=== PATIENT | female | born 1965 | race Caucasian/White ===

== ENCOUNTER 2020-05-19 16:07 | Outpatient (REF) | payer BC, SELFPAY ==
[2020-05-19 17:41] LABS: MANUAL DIFF FLAG NO
[2020-05-19 17:55] LABS: Basophils Absolute Auto 0.1 X10*3/uL (0.0-0.2); Basophils Percent Auto 0.8 % (0-2); Eosinophils Absolute Auto 0.3 X10*3/uL (0.0-0.4); Hematocrit 39.4 % (37-47); Hemoglobin 13.1 g/dl (12.0-16.0); Imm Gran Abs Auto 0.02 X10*3/uL (0.00-0.03); Imm Gran Pct Auto 0.3 % (0.0-0.4); Lymphocytes Absolute Auto 1.9 X10*3/uL (1.2-4.9); Lymphocytes Percent Auto 30.3 % (20-40); Mean Corpuscular HGB Conc 33.2 g/dl (31.0-35.0); Mean Corpuscular Hemoglobin 30.7 pg (27.0-33.0); Mean Corpuscular Volume 92.3 fL (80-98); Mean Platelet Volume 9.7 fL (9.4-12.3); Monocytes Absolute Auto 0.5 X10*3/uL (0.1-1.2); Monocytes Percent Auto 8.3 % (2-11); Neutrophils Absolute Auto 3.5 X10*3/uL (2.0-8.3); Neutrophils Percent Auto 56.3 % (45-73); Platelet Count 284 X10*3/uL (160-400); Red Blood Count 4.27 X10*6/uL (4.20-5.50); White Blood Count 6.2 X10*3/uL (4.8-10.8)
[2020-05-19 18:12] LABS: C Reactive Protein 0.12 mg/dL (< or = 0.50)
[2020-05-19 19:07] LABS: Erythrocyte Sedimentation Rate 12 MM/HR (0-20)
[2020-05-21 19:56] LABS: Immunoglobulin A 123 mg/dL (47-310)
[2020-05-22 13:47] LABS: Transglutaminase Ab IgG 1 U/mL; Transglutaminase IgA 1 U/mL
[2020-05-24 14:57] LABS: Gliadin Deamidated IgA Ab 3 Units; Gliadin Deamidated IgG Ab 1 Units
[2020-05-28 10:58] LABS: Endomysial IgA Antibody Negative (Negative)
== END 2020-05-19 16:08 | disposition home or self-care (01) ==
LOC: HO.LAB 16:07
PROVIDERS: PCP Family Medicine; Visit Provider Internal Medicine
DX: R19.4 Change in bowel habit (principal); K58.9 Irritable bowel syndrome, unspecified
CPT/HCPCS: 36415; 82784; 83516; 85025; 85652; 86140; 86255; 86256

== ENCOUNTER 2020-05-24 08:50 | Day surgery (SDC) | payer BC, SELFPAY ==
--- NOTE | 2020-05-23 10:59 | HO.ANESPROP2 ---
Documented by User: Marley Patel 05/23/20 11:01 HPI - Anesthesia Eval Consult details Narrative: 54yo F for Colonoscopy [facility] Past Medical History Medical History Anxiety COPD (chronic obstructive pulmonary disease) Depression Surgical History Surgical History Hx of tonsillectomy Social History Social History Smoking Status: Former smoker Years Smoked: 40 Smoked in Last 30 Days: No Smoking Quit Date: 4 years ago Patient Given Instructions on How to Stop Smoking: No Second Hand Smoke Exposure: Yes Use of substances other than those prescribed or required for medical reasons: No Advance Directives: No Advance Directives Information Provided: Yes Meds Allergies Allergy/AdvReac Type Severity Reaction Status Date / Time penicillin V Allergy Unknown Hives/swell Verified 07/31/15 00:00 ing Exam Exam Date and Time: May 23, 2020 1059 Assessment and Plan Assessment Anesthesia Assessment: Chart Reviewed Documented by User: Maxine Ellsworth 05/24/20 10:56 [facility] Past Medical History Medical History Anxiety COPD (chronic obstructive pulmonary disease) Depression Surgical History Surgical History Hx of tonsillectomy Social History Social History Smoking Status: Former smoker Years Smoked: 40 Smoked in Last 30 Days: No Smoking Quit Date: 4 years ago Patient Given Instructions on How to Stop Smoking: No Second Hand Smoke Exposure: Yes Use of substances other than those prescribed or required for medical reasons: No Advance Directives: No Advance Directives Information Provided: Yes Meds Allergies Allergy/AdvReac Type Severity Reaction Status Date / Time penicillin V Allergy Unknown Hives/swell Verified 07/31/15 00:00 ing Exam Airway Mallampati Class: II TM Dist: >3cm Neck ROM: Full Loose/Missing/Broken Teeth: No Heart: RRR Lungs: CTA Assessment and Plan Assessment Anesthesia Assessment: Anesthesia Plan Discussed and Chart Reviewed Final Anesthetic Review NPO: Yes ASA Class: II Final Preanesthetic Review: Meds/Allgs Chart Reviewed, Consent Obtained/Reviewed and Anes Risks/Benef Reviewed Patient Risk: Low Procedure Risk: Low Assessment/Block/Sedation in SS: Assess/Block/Sedation-SS Anesthetic Plan Anesthetic Plan: MAC: Disposition: Standard PACU
[2020-05-24 09:34] VITALS: BMI 30.7
[2020-05-24 09:36] VITALS: BP 146/88; PULSE 55; RESP 16; TEMP 37.1; O2SAT 96
[2020-05-24] MEDS: Lactated Ringers 1,000 ML 100 ML IVCONT (09:42)
[2020-05-24 11:35] VITALS: BP 121/52; PULSE 51; RESP 18; TEMP 37.2; O2SAT 100
--- NOTE | 2020-05-24 11:45 | PM.OP ---
Brief Operative Note Date of Service: 05/24/20 Pre-op diagnosis: Diarrhea, Rectal bleeding Post-op diagnosis: other (Colitis, Rectal polyps) Procedure: Colonoscopy to cecum and TI with biopsies Surgeon: Dion Guzman Anesthesia: MAC Estimated blood loss (mL): 5.0 Pathology: other (A. Ascending colon B. Sigmoid 20-30cm C. Rectum D. Rectal polyps) Condition: stable Disposition: PACU
[2020-05-24 11:57] VITALS: BP 199/61; PULSE 52; RESP 16; O2SAT 100
[2020-05-24 12:05] VITALS: BP 119/61; PULSE 52; RESP 16; TEMP 37.2; O2SAT 100
--- NOTE | 2020-05-24 12:51 | OP_ITS ---
SURGEON: Dion Guzman MD INDICATIONS: The patient presents for evaluation of change in bowel habits, diarrhea, and rectal bleeding. Full consent has been obtained from her for this, including risks of bleeding and perforation. PREOPERATIVE DIAGNOSIS: POSTOPERATIVE DIAGNOSIS: PROCEDURE PERFORMED: Colonoscopy to cecum and terminal ileum with biopsies. ESTIMATED BLOOD LOSS: COMPLICATIONS: ANESTHESIA: Monitored anesthesia care. ASSISTANTS: SPECIMENS: PREOPERATIVE DIAGNOSES: Change in bowel habits, rectal bleeding, and diarrhea. POSTOPERATIVE DIAGNOSES: Change in bowel habits, rectal bleeding, and diarrhea, probable ulcerative colitis, colon polyps, sigmoid diverticulosis, and internal hemorrhoids. DESCRIPTION OF PROCEDURE: The patient was placed in the left lateral decubitus position. The digital rectal exam revealed no abnormalities. The [employer] video pediatric colonoscope was entered into the rectum and advanced easily to the cecum. Once in the cecum, I did identify normal-appearing cecal pouch other than some very minimal changes of colitis with some overlying exudate. The great majority of the cecum appeared normal. The terminal ileum was cannulated and appeared normal. The scope was withdrawn back in the colon. Again, the great majority of the cecum appeared normal other than some very minimal areas of overlying exudate. With irrigation, most of this disappeared, but there was some underlying mucosal friability. The scope was then slowly withdrawn assessing all mucosal surfaces carefully. Preparation was excellent. In the ascending colon was a mild colitis in a patchy distribution. Again, there was some overlying exudate that was mostly washed away but revealed some underlying mucosal friability consistent with colitis. Biopsies were obtained in the ascending colon. The distal ascending colon, transverse colon, and descending colon appeared grossly normal. The sigmoid colon, primarily between 20 and 30 cm, did have evidence of a more active colitis although still relatively mild. Biopsies were obtained between 20 and 30 cm. The proximal rectum also had changes of colitis with biopsies obtained, although the more distal rectum appeared normal. The scope was retroflexed visualizing some internal hemorrhoids. The scope was straightened in the forward viewing position where several probable hyperplastic and/or inflammatory polyps, 2 or 3 of which were biopsied. The scope was withdrawn from the patient. She tolerated the procedure well and returned to recovery area in stable condition. IMPRESSION: 1. Mild changes of colitis in the proximal rectum, sigmoid colon, and ascending colon. 2. Diverticulosis. 3. Rectal polyps. 4. Internal hemorrhoids. PLAN: The results of biopsy will be checked. I do feel these changes in the colon would certainly account for her current symptoms. I shall start her on a trial of mesalamine 800 mg t.i.d. to see if that gives her some symptomatic relief. She may ultimately require some topical treatment with a mesalamine suppository and/or a mesalamine enema. I do not think she needs steroids at this point. I did advise her to limit her caffeine and she can continue to use Imodium as needed. She will see me within 2 months for a followup visit. She will call sooner p.r.n. This has been discussed with her . MD ERINN Mishra/JET / [phone]
== END 2020-05-24 12:40 | disposition home or self-care (01) ==
PROVIDERS: PCP Family Medicine; Visit Provider Internal Medicine
PROC: 0DJD8ZZ Inspection of Lower Intestinal Tract, Via Natural or Artificial Opening Endoscopic (ICD-10-PCS; CPT 45378; principal; 2020-05-24 10:00)
DX: K62.5 Hemorrhage of anus and rectum (principal); R19.4 Change in bowel habit; K62.1 Rectal polyp; K57.30 Diverticulosis of large intestine without perforation or abscess without bleeding; K64.8 Other hemorrhoids; K62.89 Other specified diseases of anus and rectum; K52.9 Noninfective gastroenteritis and colitis, unspecified; J44.9 Chronic obstructive pulmonary disease, unspecified; K58.9 Irritable bowel syndrome, unspecified; Z79.899 Other long term (current) drug therapy; Z88.0 Allergy status to penicillin
CPT/HCPCS: 45380; 88305

== ENCOUNTER 2021-12-06 12:02 | Outpatient (REF) | payer BC, SELFPAY ==
--- NOTE | ~2021-12-06 | MM_ITS ---
EXAMINATION: MM SCREENING DIGITAL BREAST TOMOSYNTHESIS, BILATERAL CLINICAL INFORMATION: Screening. Asymptomatic. The lifetime risk of breast cancer based on the Tyrer-Cuzick Model is 6%. COMPARISON: Mammography: 01/15/2019, 12/30/2017, 08/03/2015 . The oblique TECHNIQUE: Digital breast tomosynthesis is performed in both the craniocaudal and mediolateral oblique views along with computer-aided detection (CAD). Synthesized 2D images are generated from the tomosynthesis. FINDINGS: There are scattered areas of fibroglandular density (ACR BI-RADS breast composition Category b). There are no significant masses, abnormal calcifications, or other abnormalities. No developing density or architectural abnormality. The axilla and skin contours are unremarkable. MM/MM tomosynthesis screening BI IMPRESSION: No mammographic evidence of malignancy. ASSESSMENT: BI-RADS 1: Negative RECOMMENDATION: Routine annual mammography screening. This patient's information was entered into a reminder system with a target due date for their next mammogram.
== END 2021-12-06 12:03 | disposition home or self-care (01) ==
LOC: HO.MAMMO 12:02
PROVIDERS: Visit Provider Family Medicine
DX: Z12.31 Encounter for screening mammogram for malignant neoplasm of breast (principal)
CPT/HCPCS: 77063; 77067

== ENCOUNTER 2022-03-20 08:12 | Outpatient (REF) | payer BC, SELFPAY ==
[2022-03-21 09:29] LABS: CDiff Gene PCR NEGATIVE (Negative)
[2022-03-21 11:19] LABS: E. coli EAEC Not Detected (Not Detect.); E. coli EPEC Not Detected (Not Detect.); E. coli ETEC Not Detected (Not Detect.); E. coli STEC Not Detected (Not Detect.); Plesiomonas shigelloides Not Detected (Not Detect.); Salmonella Not Detected (Not Detect.); Vibrio Not Detected (Not Detect.); Vibrio Cholerae Not Detected (Not Detect.); Yersinia enterocolitica Not Detected (Not Detect.)
[2022-03-21 11:21] LABS: Campylobacter Detected (Not Detect.)
[2022-03-21 11:22] LABS: Adenovirus F 40/41 Not Detected (Not Detect.); Astrovirus Not Detected (Not Detect.); Cryptosporidium Not Detected (Not Detect.); Cyclospora cayetanensis Not Detected (Not Detect.); Entamoeba histolytica Not Detected (Not Detect.); Giardia lamblia Not Detected (Not Detect.); Norovirus GI/GII Not Detected (Not Detect.); Rotavirus A Not Detected (Not Detect.); Sapovirus Not Detected (Not Detect.); Shigella sp./EIEC Not Detected (Not Detect.)
[2022-03-25 18:48] LABS: Calprotectin, Fecal 2000 mcg/g
== END 2022-03-20 08:13 | disposition home or self-care (01) ==
LOC: HO.LNP 08:12
PROVIDERS: Visit Provider Internal Medicine
DX: K62.5 Hemorrhage of anus and rectum (principal); K51.90 Ulcerative colitis, unspecified, without complications; R19.7 Diarrhea, unspecified
CPT/HCPCS: 83993; 87493; 87507

== ENCOUNTER 2022-03-20 14:07 | Outpatient (REF) | payer BC, SELFPAY ==
[2022-03-20 14:30] LABS: MANUAL DIFF FLAG NO
[2022-03-20 14:57] LABS: Basophils Absolute Auto 0.1 X10*3/uL (0.0-0.2); Basophils Percent Auto 0.9 % (0-2); Eosinophils Absolute Auto 0.3 X10*3/uL (0.0-0.4); Eosinophils Percent Auto 3.8 % (0-4); Hematocrit 38.5 % (37.0-47.0); Imm Gran Abs Auto 0.04 X10*3/uL (0.00-0.03); Imm Gran Pct Auto 0.5 % (0.0-0.4); Lymphocytes Absolute Auto 1.8 X10*3/uL (1.2-4.9); Lymphocytes Percent Auto 21.5 % (20-40); Mean Corpuscular HGB Conc 33.8 g/dl (31.0-35.0); Mean Corpuscular Hemoglobin 30.9 pg (27.0-33.0); Mean Corpuscular Volume 91.4 fL (80.0-98.0); Mean Platelet Volume 8.9 fL (9.4-12.3); Monocytes Absolute Auto 0.6 X10*3/uL (0.1-1.2); Monocytes Percent Auto 7.3 % (2-11); Neutrophils Absolute Auto 5.4 x10*3/uL (2.0-8.3); Platelet Count 339 X10*3/uL (160-400); Red Blood Count 4.21 X10*6/uL (4.20-5.50); Red Cell Distribution Width 11.8 % (11.0-16.0); White Blood Count 8.2 X10*3/uL (4.8-10.8)
[2022-03-20 15:21] LABS: Alanine Aminotransferase 13 U/L (0-31); Albumin Level 4.1 g/dL (3.5-5.0); Alkaline Phosphatase 117 U/L (39-117); Aspartate Amino Transferase 15 U/L (5-31); Bilirubin Direct < 0.2 mg/dL (0.0-0.5); Bilirubin Total 0.4 mg/dL (0.0-1.0); C Reactive Protein 0.33 mg/dL (< or = 0.50); Total Protein 6.6 g/dL (6.5-8.0)
[2022-03-20 15:52] LABS: Erythrocyte Sedimentation Rate 26 MM/HR (0-20)
== END 2022-03-20 14:08 | disposition home or self-care (01) ==
LOC: HO.LAB 14:07
PROVIDERS: PCP Family Medicine; Visit Provider Internal Medicine
DX: K62.5 Hemorrhage of anus and rectum (principal); K51.90 Ulcerative colitis, unspecified, without complications; R19.7 Diarrhea, unspecified
CPT/HCPCS: 36415; 80076; 85025; 85652; 86140

== ENCOUNTER 2022-12-31 08:25 | Outpatient (REF) | payer BC, SELFPAY ==
--- NOTE | ~2022-12-31 | MM_ITS ---
EXAMINATION: BONE DENSITOMETRY CLINICAL INDICATION: Menopause. COMPARISON: This is the patient's baseline examination. TECHNIQUE: Using a [employer] DXA System (software version: 13.1) manufactured by [employer], dual-energy x-ray absorptiometry was performed of the lumbar spine and left hip. The images are of good technical quality. Summary results are attached. FINDINGS: LEFT FEMUR, NECK: BMD 0.772 g/cm2, Z-score -1.1, T-score -1.9, osteopenia. LEFT FEMUR, TOTAL: BMD 0.782 g/cm2, Z-score -1.3, T-score -1.8, osteopenia. AP SPINE L1-L3 (excluding L4): The data of L1-L4 has been changed to exclude the L4 vertebral body, because degenerative sclerosis at this level may cause overestimation of lumbar spine density. BMD 0.697 g/cm2, Z-score -3.4, T-score -3.9, osteoporosis. IDENTIFIED RISK FACTORS: Early menopause, secondary osteoporosis. HISTORY OF FRACTURE: None listed. MEDICATIONS: None listed. MM/XR DEXA axial skeleton IMPRESSION: 1. DIAGNOSIS: Osteoporosis based on the lowest T-score value of -3.9 in the lumbar spine applying World Health Organization criteria. 2. 10-YEAR FRACTURE RISK PREDICTION, FRAX: According to the guidelines, FRAX calculation should only be performed on patients in the osteopenia bone density category. Therefore, FRAX was not performed on this patient. 3. Treatment Recommendations: NOF guidelines recommend consideration for treatment in postmenopausal women and men age 50 and older presenting with the following: -A hip or vertebral (clinical or morphometric) fracture. -T-score less than or equal to -2.5 at the femoral neck or spine after appropriate evaluation to exclude secondary causes. -Low bone mass at the hip or spine and a 10-year fracture probability by FRAX of greater than or equal to 3% for hip fracture or greater than or equal to 20% for major osteoporotic fracture based on the [place] adapted WHO algorithm. 4. Other Recommendations: All treatment decisions require clinical judgment and consideration of individual patient factors, including patient preferences, comorbidities, previous drug use, risk factors not captured in the FRAX model (e.g. frailty, falls, vitamin D deficiency, increased bone turnover, interval significant decline in bone density) and possible under or overestimation of fracture risk by FRAX. Additional medical evaluation for secondary cause of low bone mineral density may be appropriate. FUTURE SCAN RECOMMENDATION: People with diagnosed cases of osteoporosis or at high risk for fracture should have regular bone mineral density tests. For patients eligible for Medicare, routine testing is allowed once every 2 years. The testing frequency can be increased to one year for patients who have rapidly progressing disease, those who are receiving or discontinuing medical therapy to restore bone mass, or have additional risk factors.
== END 2022-12-31 08:26 | disposition home or self-care (01) ==
LOC: HO.MAMMO 08:25
PROVIDERS: PCP Family Medicine; Visit Provider Obstetrics & Gynecology
DX: Z12.31 Encounter for screening mammogram for malignant neoplasm of breast (principal); Z13.820 Encounter for screening for osteoporosis; Z78.0 Asymptomatic menopausal state
CPT/HCPCS: 77063; 77067; 77080

== ENCOUNTER → 2022-12-31 08:45 | Outpatient (BNV) | payer BC, SELFPAY | PROVIDERS: PCP Family Medicine; Visit Provider Radiology Diagnostic Radiology | DX: Z12.31 Encounter for screening mammogram for malignant neoplasm of breast (principal) | CPT/HCPCS: 77063; 77067 ==

== ENCOUNTER 2024-01-06 08:38 | Outpatient (REF) | payer BC, SELFPAY ==
--- NOTE | ~2024-01-06 | MM_ITS ---
EXAMINATION: MM SCREENING DIGITAL BREAST TOMOSYNTHESIS, BILATERAL CLINICAL INFORMATION: Screening. Asymptomatic. COMPARISON: Mammography: Comparison is made with available priors TECHNIQUE: Digital breast mammography with tomosynthesis is performed in both the craniocaudal and mediolateral oblique views along with computer-aided detection (CAD). FINDINGS: There are scattered areas of fibroglandular density (ACR BI-RADS breast composition Category b). There are no significant masses, abnormal calcifications, or other abnormalities. MM/MM tomosynthesis screening BI IMPRESSION: No mammographic evidence of malignancy. ASSESSMENT: BI-RADS BI-RADS 1 - Negative RECOMMENDATION: Routine annual mammography screening. 1 year F/U This examination should not preclude the clinical evaluation of a suspicious palpable abnormality. This patient's information was entered into a reminder system with a target due date for their next mammogram. Electronically signed by: Roxi Buitrago DO 01/16/2024 10:47 AM EDT
== END 2024-01-06 08:39 | disposition home or self-care (01) ==
LOC: HO.MAMMO 08:38
PROVIDERS: PCP Family Medicine; Visit Provider Family Medicine
DX: Z12.31 Encounter for screening mammogram for malignant neoplasm of breast (principal)
CPT/HCPCS: 77063; 77067

== ENCOUNTER → 2024-01-06 09:00 | Outpatient (BNV) | payer BC, SELFPAY | PROVIDERS: PCP Family Medicine; Visit Provider Internal Medicine | DX: Z12.31 Encounter for screening mammogram for malignant neoplasm of breast (principal) | CPT/HCPCS: 77063; 77067 ==

== ENCOUNTER 2025-01-11 08:31 | Outpatient (REF) | payer BC, SELFPAY ==
--- OUTSIDE RECORDS SUMMARY | 2023-12-17 07:50 | XMS_ITS | Encounter Summary ---
Author Organization [facility] Address [address] [place] [address] Care Team Providers Care Channel Sales Director Name Role Phone Vimal Underwood DO Primary Care Provider [phone] Encounter Details Date Type Department Care Team (Late st Contact Info) Description 12/17/2023 7:50 AM EDT Hospital Encounter TH HISTORIC ENCOUNTERS EASTERN CONVERSION ONLY Social History Tobacco Use Types Packs/Day Years Used Date Smoking Tobacco: Former Cigarettes 1.5 35 0 03/17/1980 - 03/17/2015 Alcohol Use Standard Drinks/Week Comments Yes 0 (1 standard drink = 0.6 oz pur e alcohol) rare Comments Unknown Sex and Gender Information Value Date Recorded Sex Assigned at Female 04/07/2024 8:44 AM EST Legal Sex Female 4:39 PM EDT Gender Identity Female 04/07/2024 8:44 AM EST Sexual Orientation Straight 04/07/2024 8: 44 AM EST documented as of this encounter Last Filed Vital Signs Vital Sign Reading Time Taken Comments Blood Pressure - - Pulse - - Temperature - - Respiratory Rate - - Oxygen Saturation - - Inhaled Oxygen Concentration - - Weight 84.3 kg (185 lb 13.6 oz) 024 10:13 AM EST Height - - Body Mass Index - - documented in this encounter Progress Notes * Historical, Notes Results - 12/17/2023 8:18 AM EDT 0818- Patient??arrives, ambulatory to unit for Entyvio infusion, prescribed by GI. She says in the last 2-3 weeks she has been requiring the Imodium more. Says this morning she had two formed stools then four loose stools. She feels she notices this closer to the day she is due for her infusion. Denies any cramping, bleeding, abdominal pain, etc. She has no questions or concerns and says she will be having a colonoscopy at the end of this month. Treatment plan reviewed and medication releasedfrom plan to pharmacy. Peripheral IV established without difficulty??and flushed/saline locked for later use.??Patient given Ginette Doone cookies and is??comfortable in the recliner with the call bellnear. ?? 0844- IV flushed and 250 mls NS flush bag hung. Entyvio hung, programmed to infuse over 30 minutes.Patient is comfortable, with the call leiva near. 0923-??Completed the remainder of the Entyvio without any difficulty. Peripheral IV removed, pressure??dressing applied to site. Next appointment??in 8 weeks booked, printed and given to patient. Sheleft the unit stable, ambulatory without questions or concerns. documented in this encounter Plan of Treatment Upcoming Encounters Date Type Department Care Team (Late st Contact Info) Description 06/23/2025 9:10 AM EDT Office Visit Gastroenterology - [address] [facility] [address] [place] [id number] Kassandra Munoz PA [address] [place] [address] documented as of this encounter Visit Diagnoses Not on filedocumented in this encounter Care Teams Channel Sales Director Relationship Specialty Start Date End Date Vimal Underwood DO [address] [place] [address] PCP - General 05/07/23 documented as of this encounter
--- OUTSIDE RECORDS SUMMARY | 2025-01-11 09:18 | XMS_ITS | Patient Health Record ---
Author Organization [facility] Address [address] [place] [id number] Care Team Providers Care Test Puller Name Role Phone Vimal Underwood MD Primary Care Provider Dion Self Unavailable [phone] Allergies Allergen (clinical drug ingredient) Drug/Non Drug Allergy documented on EMR Reaction Allergy Type Onset Date Status Penicillin Unknown Drug Allergy Active Reason For Referral No Information Medications Medication SIG (Take, Route, Frequency, Duration) Notes Start Date End Date Status Nicotine lozenge Active Mesalamine 1.2 GM TAKE 4 TABLETS BY MO UT EVERY MORNING 90; Duration: 90 Active busPIRone HCl 15 MG Orally Active Multivitamin Adult A ctive ZyrTEC Allergy Activ e Fluoxetine 20 mg Act dave Azithromycin 500 MG 1 tablet Orally One pill daily; Duration: 7 days 03/21/2022 Not-Taking Atorvastatin Calcium 10 MG 1 tablet Orally Once a day; Duration: 30 day(s) Active predniSONE 5 MG 8 tablets(40mg) lenore y for 1 week, and then decrease by 1 pill(5mg) every week Orally Once a day; Duration: 56 days 03/20/2022 Not-Taking Wixela Inhub 250-50 MCG/DOSE INHALE 1 PUFF BY MOUTH TWICE A DAY Inhalation; Duration: 30 Active Albuterol Sulfate HFA 108 (90 Base) MCG/ACT INHALE 2 PUFFS BY MOUTH EVERY 6 HOURS Inhalation; Duration: 16 Active Immunizations Vaccine Route Administration Date Status Comme nts Influenza Unknown 11/16/2019 Administered Influenza Unknown 12/15/2020 Administered Influenza Unknown 02/05/2022 Administered Social History Tobacco Use: Social History Observation Description Date Details (start date - stop date) Former Smoker NA - NA Tobacco Use/Smoking Question Answer Notes Patient is a former smoker How long has it been since you last smoked? 6-12 months Section Notes: Nonsmoker since 07/2015; no s ig alcohol Nonsmoker since 07/2015; no s ig alcohol Nonsmoker since 07/2015; no s ig alcohol Nonsmoker since 07/2015; no s ig alcohol Nonsmoker since 07/2015; no s ig alcohol Nonsmoker since 07/2015; no s ig alcohol Nonsmoker since 07/2015; no s ig alcohol Problems Problem Type SNOMED Code ICD Code Onset Dates Problem Status W/U Status Risk Notes Problem Irritable bowel syndrome (73084421) Irritable bowel syndrome (K58.9) Active confirmed Problem Screening for malignant neoplasm of colon (855170837) Encounter for screening for malignant neoplasm of colon (Z12.11) Active confirmed Problem Change in bowel habit (26971734) Change in bowel habits (R19.4) Active confirmed Problem Screening for malignant neoplasm of rectum (700542922) Encounter for screening for malignant neoplasm of rectum (Z12.12) Active confirmed Problem Preprocedural examination (591856709233046) Preprocedural examination (Z01.818) Active confirmed Problem Hemorrhage of rectum and anus (074132869) Rectal bleed (K62.5) Active confirmed Problem Ulcerative colitis (04194160) Ulcerative colitis without complications, unspecified location (K51.90) Active confirmed Problem Diarrhea (80404030) Diarrhea, unspecified type (R19.7) Active confirmed Problem Abdominal pain (22903998) Abdominal cramping (R10.9) Active confirmed Problem Diarrhea of presumed infectious origin (00063166) Diarrhea of presumed infectious origin (R19.7) Active confirmed Plan Of Treatment Pending Test Test Name Order Date LIVER PROFILE 03/20/2022 CRP 05/19/2020 CRP 03/20/2022 CBC w DIFF 05/19/2020 CBC w DIFF 03/20/2022 SED RATE (ESR) 05/19/2020 SED RATE (ESR) 03/20/2022 CLOSTRIDIUM DIFF TOXIN A&B (C DIFF) 06/16 STOOL WBC 07/13/2018 CELIAC PANEL #10 05/19/2020 GIARDIA AG, STOOL EIA 07/13/2018 OVA & PARASITES (O&P) 07/13/2018 CULTURE, STOOL 07/13/2018 C DIFFICILE RFLX PCR 03/20/2022 CALPROTECTIN, STOOL 03/20/2022 Future Test Test Name Order Date COLONOSCOPY 11/24/2015 COLONOSCOPY 05/19/2020 Insurance Providers Payer Name Payer Address Payer Phone Subscriber Number Group Number Insured Name Patient Relationship to Insured Coverage Start Date Coverage End Date [facility] [address] [place], [place] [id number] [phone] [id number] JAMES YI Self - patient is the insured Medical (General) History Medical History History ICD Code Denies CA,DM,CVA,Lung disease,renal dise ase Depression/anxiety COPD Screening Colonoscopy in 02/2016--only h yperplastic polyps, diverticulosis Infectious gastroenteritis i n June of 2017 after treatment with clindamycin. Stool was positive for WBCs and negative for C. difficile. However, she was treated with Flagyl for presumed C. difficile infection and did have significant improvement, although she was left with some mild IBS symptoms. Ulcerative colitis--05/2020--predominantl y left-sided--started on Mesalamine Broken toe on the right foot 2020 High cholesterol Heat stroke summer 2021 Flare of colitis toward the end of 2021 and the beginning at 2022. A stool specimen was positive for Campylobacter in March of 2022. She was treated with a course of azithromycin. However, her colitis symptoms persisted and she was treated with a course of prednisone with good results. She continued on her mesalamine after that. Surgical History Surgery Date(Month/Year) Tonsillectomy
--- OUTSIDE RECORDS SUMMARY | 2025-01-11 09:18 | XMS_ITS | Data Portability ---
Author Organization [place] - [facility],, MARIBEL WHARTON MD Address [address] [address] Care Team Providers Care Associate Product Integrity Engineer Name Role Phone LUZ ELENA BUTTS Primary Care Provider Assessment No assessment recorded. Plan of Treatment Reminders Order Date Submit Date Provider Last Modified By Organization Details Last Modified Time Details Appointments ANNUAL EXAM 2024 10:20A M Maribel Wharton MD Not available Not available Not available Lab cytology report, thin prep, smear or scraping , cervical or vaginal 2023 024 JULIAN [facility] (Centralized Electronic Ordering - All Locations), Patient Can Go To The Location Of Their Choice, [id number] 01/08/2024 12:06:21 hemoglob in, gastroin testinal , stool 2023 024 [email or web address] In-Office Order, Internal Use Only DO Not Attach Compendium DO Not Attach Compendium, Do Not Delete/merge, [id number] 01/05/2024 11:54:09 pap test, thinprep , cervical 2022 023 [email or web address] [facility] (Centralized Electronic Ordering - All Locations), Patient Can Go To The Location Of Their Choice, [id number] 12/20/2022 08:13:19 Referral endocrin ology referral - T score of -3.9 in spine on bone density 2022 023 JULIAN [facility] Endocrinology -(Surgeon), [address] [facility], [facility] [address], [place], [address], 04/04/2023 11:57:13 Procedures None recorded . Surgeries None recorded . Imaging MAMMO, screenin g, digital, bilatera l - Breast Aspirati on and/or Biopsy if needed 2023 024 [facility], [address] [place] [address], [address], 12/30/2024 07:58:06 bone density - had prematur e ovarian failure at age 42, never on HRT 2022 023 [facility] (Imaging), [address] [place] [address], [address], 01/01/2023 08:22:35 MAMMO, screenin g, digital, bilatera l - Breast Aspirati on and/or Biopsy if needed 2022 023 [facility] (Imaging), [address] [place] [address], [address], 01/18/2023 06:46:13 Medication Orders estradio l 0.01% (0.1 mg/gram) vaginal cream 2023 024 [id number], [address] [place], [address], 01/05/2024 10:20:36 estradio l 10 mcg vaginal tablet 2022 023 [email or web address] [id number], [address] [place], [address], 12/31/2022 14:09:03 Patient TargetsNo targets recorded. Patient Instructions Encounter Date Encounter Id Patient Instructions Last Modified By Organization Details Last Modified Time 12/13/2022 [id number] learning about healthy weight Not available 12/13/2022 10:25:46 She is here as a new patient for annual exam, works for [employer], , 3 children. She is a former smoker, she gave up alcohol 9 weeks ago : due to liver going up a touch. It was not bad but my PCP said to watch it. Menopause age 42. Never took HRT. Has not had a gypsum calciner exam in more than 10 years, paps always normal. She has ulcerative colitis, and urinary stress incontinence, wears a Depends pad daily. She has 3 children and 7 grandchildren, plans to retire at [age] ! We discussed that her urinary incontinence may improve with estradiol vaginal therapy, and her vaginal dryness, as well. She will set up a telehealth to go over this. Check bone density as had premature ovarian failure at age 42 so at risk of early age onset osteoporosis. She appears to be doing well. Monthly self breast exam was taught, and stressed, and is advised to call if she discovers any new mass in the breast. Not available 12/13/2022 10:29:21 12/31/2022 [id number] Stress Incontinence: Care Instructions [email or web address] Not available 12/31/2022 13:32:06 This visit is a phone telehealth visit. The patient consented to the visit by phone. The patient was at home at the time of the call and the provider and patient were the only people on the line. I was at [address] [facility], [address], [place], [place], at the time of the call. She has significant urinary stress incontinence. She can go all night, or all day fine, but if I am walking, or sneeze, I leak. She is wearing Depends daily. she also has dyspareunia and vaginal dryness. She had premature ovarian failure at age 42. Note from 12/13/22: She is here as a new patient for annual exam, works for [employer], , 3 children. She is a former smoker, she gave up alcohol 9 weeks ago : due to liver going up a touch. It was not bad but my PCP said to watch it. Menopause age 42. Never took HRT. Has not had a gypsum calciner exam in more than 10 years, paps always normal. She has ulcerative colitis, and urinary stress incontinence, wears a Depends pad daily. She has 3 children and 7 grandchildren, plans to retire at 61.5 ! We discussed that her urinary incontinence may improve with estradiol vaginal therapy, and her vaginal dryness, as well. She will set up a telehealth to go over this. Check bone density as had premature ovarian failure at age 42 so at risk of early age onset osteoporosis. We discussed the possible addition of vaginal estradiol and she would like to do that. We reviewed cream, tablets and ring and she prefers tablets, after we checked pricing. She is aware it may take 3 to 4 months to notice an improvement. call if no significant improvement. The patient was agreeable to this plan. She is aware of the limitations caused by the covid restrictions, and this phone call. Face to face discussion 22 minutes Not available 12/31/2022 14:12:32 01/08/2023 [id number] osteoporosis: ca re instructions Not available 01/08/2023 09:22:35 This visit is a phone telehealth visit. The patient consented to the visit by phone. The patient was at home at the time of the call and the provider and patient were the only people on the line. I was at [address] [place] [address], [address], [place], at the time of the call. Her T score of the spine was -3.9, she has never had a bone density before this. 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 She had premature ovarian failure at age 42. This could be a contributing factor, we discussed this at length. We discussed her new diagnosis of osteoporosis. We reviewed the results of her bone density test, with reference to the computer images. We discussed the way that standard deviation is used for diagnosis, and what this means to her as she ages. Adequate calcium intake of 1500 mg daily, weight bearing exercise three times a week, and vitamin D supplementation of at least 400 units daily is suggested. She is advised to try to avoid tobacco, coffee, and steroids if possible. Benefits of an active lifestyle discussed as well. All questions answered. We discussed the different forms of medical treatment for osteoporosis, including Fosamax, Miacalcin, Evista, and Actonel. After discussion she elects to see an nursery technician as this is unexpected, and there is a question of degenerative sclerosis at L4, and so there is a question of whether this might be an artifact. Return for routine annual exam as scheduled. Face to face discussion for 23 minutes. Not available 01/08/2023 10:56:32 01/05/2024 [id number] learning about healthy weight Not available 01/05/2024 10:20:33 She is here for annual. Lat year she was diagnosed with osteoporosis, (had premature ovarian failure), is taking alendronate. Also, she was started on estradiol vaginal therapy with Yuvafem, for her urinary stress incontinence. She had seen a urologist who offered botox injections. She notes the estradiol has improved her symptoms somewhat however there are still days when she leaks heavily, and wonders if there is a different estrogen to try. Her liver tests are normal now she notes. Her ulcerative colitis has been flaring despite her infusions. Note from 2022: She is here as a new patient for annual exam, works for [employer], , 3 children. She is a former smoker, she gave up alcohol 9 weeks ago : due to liver going up a touch. It was not bad but my PCP said to watch it. Menopause age 42. Never took HRT. Has not had a gypsum calciner exam in more than 10 years, paps always normal. She has ulcerative colitis, and urinary stress incontinence, wears a Depends pad daily. She has 3 children and 7 grandchildren, plans to retire at 61.5 ! We discussed that her urinary incontinence may improve with estradiol vaginal therapy, and her vaginal dryness, as well. She will set up a telehealth to go over this. Check bone density as had premature ovarian failure at age 42 so at risk of early age onset osteoporosis. She appears to be doing well. Monthly self breast exam was taught, and stressed, and is advised to call if she discovers any new mass in the breast. On breast exam: slight increased density, 1 cm tall vertically, 3 mm wide, upper left breast near chest wall at the 12 o'clock, may just be increased fibroglandular tissue. Her screening mammo is tomorrow, she will go for that and then follow this on exam, if it changes or enlarges at all she will call me for additional testing. Will switch from Yuvafem to estradiol vaginal cream to see if this works better for her. Not available 01/05/2024 10:23:37 Reason for Referral Endocrinology Referral for O steoporosis T score of -3.9 in spine on bone density Referring Physician: Maribel Wharton, Gynecology, Encounter Date: 01/08/2023 Results Created Date Observation Date Name Description Value Unit Range Abnormal Flag Note LastModifiedBy Organization Detail LastModifiedTime 12/14/19 23 12/13/2022 [facility] results Patie nt Name: CALE FUCHS CH, RA Paticlaudio nt : 1965 (Age: 57) Lab Acces gage #: [id number] Colle ction Date: 2022 Acces gage Date: 2022 Sign Out Date: 2022 Tissu e Sourc e: 1: THINP REP DETECTIVE AND INTELLIGENCE ANALYST PAP TEST, CERVI JEISON: Final Diagn osis: NEGAT JESSA FOR INTRA EPITH ELIAL LESIO N OR MALIG CRISTOPHER . Atrop hy. Satis facto ry for evalu ation . Parti ally obscu ring infla mmati on prese nt. Scant squam ous cellu larit y prese nt. Clini jeison Histo ry: Date of Last Menst rual Perio d: not avail able Menst rual Histo ry: Post- menop ausal Contr acept jessa Histo ry: not avail able Ancil edwin Testi ng: HPV (ASCU S) Case image d by the ThinP rep Imagi ng Syste m with patricia bang rescr beatris g or delaney liriano. Perfo rmed at [facility] ate Refer ence Labor atory depar tment of Cytol ogy, [address] [place] Clini jeison Histo ry (othe r): Z01.4 19, NEW PT, ROUTI NE SCREE N Phone #: [phone], On-Ca ll Patho logis t: [id number] Not Available [facility] (Centralized Electronic Ordering - All Locations) Patient Can Go To The Location Of Their Choice, [id number] 12/19/2022 11:51:39 01/05/20 24 01/08/2024 IGP, RFX APTIM A HPV ASCU diagnosis: Commen t NEGAT JESSA FOR INTRA EPITH ELIAL LESIO N OR MALIG CRISTOPHER . Not Available [facility] ([facility]) [address] [place], [address], 01/08/2024 12:06:21 01/05/2001/08/2024 IGP, RFX APTIM A HPV ASCU specimen adequacy: Jennifer wolf Satis facto ry for evalu ation . Not Available [facility] ([facility]) [address] [place], [address], 01/08/2024 12:06:21 01/05/2001/08/2024 IGP, RFX APTIM A HPV ASCU clinician provided ICD10: Jennifer wolf Z01.4 19 Not Available [facility] ([facility]) [address] [place], [address], 01/08/2024 12:06:21 01/05/2001/08/2024 IGP, RFX APTIM A HPV ASCU performed by: Jennifer Pickens, Dori wolf (ASCP ) Not Available [facility] ([facility]) [address] [place], [address], 01/08/2024 12:06:21 01/05/2001/08/2024 IGP, RFX APTIM A HPV ASCU . . Not Available [facility] ([facility]) [address] [place], [address], 01/08/2024 12:06:21 01/05/2001/08/2024 IGP, RFX APTIM A HPV ASCU note: Jennifer wolf The Pap smear is a scree dunia test desig honey to aid in the detec tion of liana ligna nt and malig nant condi tions of the uteri ne cervi x. It is not a diagn ostic proce dure and shoul d not be used as the sole means of detec ting cervi jeison cance r. Both false -posi tive and false -nega tive repor ts do occur . Not Available [facility] ([facility]) [address], [place], [address], 01/08/2024 12:06:21 01/05/20 24 01/08/2024 IGP, RFX APTIM A HPV ASCU test methodology: Commen t This liqui d based ThinP rep(R ) pap test was lavon méndez with the use of an image guide sheridan espitia. Not Available [facility] ([facility]) [address], [place], [address], 01/08/2024 12:06:21 01/05/2001/08/2024 IGP, RFX APTIM A HPV ASCU . Commen t The HPV DNA refle x crite deondre were not met with this speci men resul t there fore, no HPV testi ng was perfo rmed. Not Available [facility] ([facility]) [address], [place], [address], 01/08/2024 12:06:21 01/06/2001/06/2024 hemog lobin , gastr ointe naga l, stool Occult Blood negati ve Not Available In-Office Order Internal Use Only DO Not Attach Compendium DO Not Attach Compendium, Do Not Delete/merge, [id number] 01/05/2024 09:56:25 01/02/20 23 12/31/2022 bone densi ty No observ ation record ed. [email or web address] [address] [place], [address], 01/01/2023 09:57:56 01/19/2012/31/2022 MAMMO , lavon dunia, digit al, bilat eral No observ ation record ed. [address] [place], [address], 01/20/2023 08:16:00 Result Notes None recorded. Problems Name Problem SNOMED Code Status Onset Date Resolution Date Notes Provider Name and Address Organization Details Recorded Time Osteoporosis 90064531 Active 2022 Maribel Wharton MD [address] [facility],[address], [place], [phone], [facility], 3 09:19:35 Premature ovarian failure 859909797 Active 2022 age 42 Maribel Wharton MD [address] [facility],[address], [place], [address], [facility], 3 10:52:08 Problem Notes None recorded. Procedures Surgical History Date Name Laterality Status Provider Name and Address Organization Details Recorded Time 3 Most Recent Mammogram completed Aline Ward [place] - [facility], 12/29/2023 08:13:51 Imaging Results None recorded. Procedure Notes None recorded. Medical Equipment None Reported. Allergies Allergen ID Allergen Name Allergen Category Reaction Reaction Severity Criticality Documentation Date Start Date Code Code System Note Provider Name and Address Organization Details Recorded Time 72591 Product containin g penicilli n (product) medicatio n hives Not available Not available 12/13/2022 58694 8001 SNOMED Aline doe [place] - [facility], 3 09:51:56 Medications Name Sig Start Date Stop Date Status Note LastModified by Organization Details LastModified Time prednisone 10 mg tablet TAKE 4 TABLETS BY MOUTH ONCE A DAY DIRECTED 01/04 completed Not Available Not Available Not Available atorvastati n 20 mg tablet TAKE 1 TABLET BY MOUTH EVERY DAY active Not Available Not Available No t Available atorvastati n 10 mg tablet TAKE 1 TABLET BY MOUTH EVERY DAY 12/13 completed Not Available Not Available Not Available azithromyci n 250 mg tablet TAKE 2 TABLETS BY MOUTH TODAY, THEN TAKE 1 TABLET DAILY FOR 4 DAYS DIRECTED 01/04 completed Not Available Not Available Not Available alendronate 70 mg tablet TAKE 1 TABLET BY MOUTH EVERY WEEK, X90 DAYS active Not Available Not Available No t Available prednisone 5 mg tablet TAKE 8 TABLETS DAILY FOR 1 WEEK, AND THEN DECREASE BY 1 TABLET EVERY WEEK 12/13 completed Not Available Not Available Not Available dexamethaso ne 1 mg tablet TAKE 1 TABLET BY MOUTH ONCE*TO BE TAKEN AT 11PM 12/13 completed Not Available Not Available Not Available estradiol 0.01% (0.1 mg/gram) vaginal cream INSERT 0.5 GRAMS EVERY DAY BY VAGINAL ROUTE FOR 85 DAYS. active Not Available Not Available No t Available fluoxetine 20 mg capsule TAKE 1 CAPSULE BY MOUTH EVERY DAY active Not Available Not Available No t Available buspirone 15 mg tablet TAKE 1 TABLET BY MOUTH EVERY DAY active Not Available Not Available No t Available azithromyci n 500 mg tablet TAKE 1 TABLET BY MOUTH EVERY DAY FOR 7 DAYS 12/13 completed Not Available Not Available Not Available cyclobenzap rine 5 mg tablet TAKE 1 TABLET BY MOUTH 3 TIMES A DAY NEEDED FOR SPASMS X7 DAYS 01/04 completed Not Available Not Available Not Available mesalamine 1.2 gram tablet,arnaud yed release TAKE 4 TABLETS BY MOUTH EVERY MORNING 90 01/04 completed Not Available Not Available Not Available GaviLyte-G 236 gram-22.74 gram-6.74 gram-5.86 gram oral solution MIX DIRECTED AND TAKE 8 OUNCES (240 ML) BY MOUTH DIRECTED active Not Available Not Available No t Available Entyvio 300 mg intravenous solution Inject by intraveno us route. active Not Available Not Available No t Available Yuvafem 10 mcg vaginal tablet INSERT 1 TABLET TWICE A WEEK BY VAGINAL ROUTE FOR 84 DAYS. active Not Available Not Available No t Available Vitals Date Recorded Body height Body mass index (BMI) Body weight Body temperature Heart rate Systolic And Diastolic Provider Name and Address Organization Details Last Updated DateTime 3 162.56 cm 30.7 kg/m2 43872.0 3 g 97.2 [degF] 70 /min 125/52 mm[Hg] Aline [facility], 3 09:52:57 Date Recorded Body height Provider Name an d Address Organization Details Last Updated DateTime 12/31/2022 162.56 cm Aline rachel [facility], 12/31/2022 13:17:20 Date Recorded Body height Body mass index (BMI) Body weight Body temperature Heart rate Systolic And Diastolic Provider Name and Address Organization Details Last Updated DateTime 162.56 cm 33.2 kg/m2 46693.0 5 g 97.4 [degF] 78 /min 129/86 mm[Hg] Aline [facility], 09:53:19 Date Recorded Body height Provider Name an d Address Organization Details Last Updated DateTime 01/08/2023 162.56 cm Bisi r[facility], 01/08/2023 09:12:06 Social History Question Answer Notes LastModified by Organizat ion Details LastModified Time Tobacco Smoking Status Former Smoker [place] [facility], 12/13/2022 09:55:49 What Is Your Level Of Caffeine Consumption? Occasional Information not available 12/13/2022 In The 14 Days Before Symptom Onset, Have You Had Close Contact With A Laboratory-confir med COVID-19 While That Case Was Ill? No Information not available 12/13/2022 In The 14 Days Before Symptom Onset, Have You Had Close Contact With A Person Who Is Under Investigation For COVID-19 While That Person Was Ill? No Information not available 12/13/2022 Have You Been To An Area Known To Be High Risk For COVID-19? No Information not available 12/13/2022 What Is The Highest Grade Or Level Of School You Have Completed Or The Highest Degree You Have Received? [id number] Information not available 12/13/2022 Who Is Your Employer? [employer] Information not available 12/13/2022 Are There Any Guns Present In Your Home? No Information not available 12/13/2022 To Which Gender Do You Self-identify? Female Information not available 12/13/2022 What Was The Date Of Your Most Recent Tobacco Screening? 12/13/2022 Information not available 12/13/2022 What Is Your Relationship Status? Information not available 12/13/2022 Are You Sexually Active? No Information not available 12/13/2022 At What Age Did You Start Smoking Tobacco? 15 Information not available 12/13/2022 How Many Years Have You Smoked Tobacco? 35 Information not available 12/13/2022 Sex: Female Functional Status Question Answer Note LastModified by Organizat ion Details LastModified Time Do you use any illicit or recreational drugs? No Information not available 12/13/2022 Do you or have you ever used any other forms of tobacco or nicotine? No Information not available 12/13/2022 What is your level of alcohol consumption? None quit 9 weeks ago...due to liver.. Information not available 12/13/2022 Are you currently employed? Yes Information not available 12/13/2022 What is your occupation? [place] [employer] Information not available 12/13/2022 What is your exercise level? Moderate Information not available 12/13/2022 Mental Status Question Answer Note LastModified by Organization D etails LastModified Time Do you feel stressed (tense, restless, nervous, or anxious, or unable to sleep at night)? [id number] Information not available 12/13/2022 Family History Relationship Description Onset Age of this Age Resolved Age Notes LastModified by Organization Details LastModified Time Father Alzheimer's disease [email or web address] Not available 2022 09:54:17 Mother Heart disease [email or web address] Not available 2022 09:54:30 Medical History Condition Response Anesthesia complications N High Blood Pressure N Candidate for MyRisk panel N Autoimmune Condition N Lung Disease N Depression Y Defects or Inherited Disease N History of Ovarian Cancer N BRCA testing in past N Anxiety Disorder Y Arthritis N Infertility N History of Cancer N Endometriosis N Kidney or Bladder Problems N Thyroid Problems N GI Problems Y Anemia N History of Breast Cancer N LINDSAY exposure N Osteopenia N Psychiatric Illness N Diabetes N Headaches or Migraines N Asthma Y Hepatitis N Heart Disease N Hypertension N Osteoporosis N Gynecological History Statement/Question Response If Post Menopausal, Age at Menopause 42 Age at Menarche 14 Most Recent Mammogram 12/31/2022 Age at First Child 18 Obstetrics History GPAL:G 3 P 3 0 0 3 Type Value Full Term 3 Living 3 Total 3 Immunizations Vaccine Type Date Status Note Provider Nam e and Address Organization Details Recorded Time Influenza, MDCK, quadrivalent, PF 7 completed Aline Meczywor null, [place] - [facility], 12/31/2022 13:17:38 Influenza, MDCK, quadrivalent, PF 2 completed Aline Meczywor null, [place] - [facility], 12/31/2022 13:17:38 zoster recombinant 1 completed Aline Meczywor null, [place] - [facility], 12/31/2022 13:17:38 zoster recombinant 1 completed Aline Meczywor null, [place] - [facility], 12/31/2022 13:17:38 COVID-19, mRNA, LNP-S, PF, 30 mcg/0.3 mL dose 1 completed Aline Meczywor null, [place] - [facility], 12/31/2022 13:17:38 COVID-19, mRNA, LNP-S, PF, 30 mcg/0.3 mL dose 1 completed Aline Meczywor null, [place] - [facility], 12/31/2022 13:17:38 COVID-19, mRNA, LNP-S, PF, 30 mcg/0.3 mL dose 1 completed Aline Meczywor null, [place] - [facility], 12/31/2022 13:17:38 COVID-19, mRNA, LNP-S, PF, 30 mcg/0.3 mL dose, dalila-sucrose 2 completed Aline Meczywor null, [place] - [facility], 12/31/2022 13:17:38 COVID-19, mRNA, LNP-S, bivalent, PF, 30 mcg/0.3 mL dose 2 completed Aline Meczywor null, [place] - [facility], 12/31/2022 13:17:38 Tdap 1 completed Aline Meczywor null, [place] - [facility], 12/31/2022 13:17:38 Influenza, split virus, trivalent, preservative 6 completed Aline Meczywor null, [place] - [facility], 12/31/2022 13:17:38 Influenza, split virus, quadrivalent, PF 0 completed Aline Meczywor null, [place] - [facility], 12/31/2022 13:17:38 Influenza, split virus, quadrivalent, PF 1 completed Aline Meczywor null, [place] - [facility], 12/31/2022 13:17:38 Past Encounters Encounter ID Performer Location Encounter Start Date Encounter Closed Date Diagnosis/Indication Diagnosis SNOMED-CT Code Diagnosis ICD10 Code Diagnosis IMO Codes Diagnosis Note [id number] MD MARIBEL Crow MD [address] [place] [address], [address] [place] [phone] 12/13/2022 09:45:04 12/13/2022 10:33:04 Specialized medical examination 09703168 Z01.419 Screening for malignant neoplasm of rectum 144380757 Z12.12 Screening mammography 24 160884 Z12.31 Menopausal syndrome 1237 69716 N95.8 [id number] MD MARIBEL Crow MD [address] [place] [address], [address] [place] [address] 12/31/2022 13:16:41 12/31/2022 14:32:47 Urinary incontinence [id number] R32 [id number] MD MARIBEL Crow MD [address] [place] [address], [address] [facility] [place] [address] 01/08/2023 09:11:02 01/08/2023 12:04:25 Osteoporosis [id number] M81.0 Premature ovarian failure [id number] E28.39 [id number] MD MARIBEL Crow MD [address] [place] [address], [place] [address] 01/05/2024 09:50:10 01/05/2024 11:54:20 Urinary incontinence [id number] R32 Specialize d medical examination [id number] Z01.419 Screening for malignant neoplasm of rectum 178859508 Z12.12 Screening mammography 24 [id number] Z12.31 Health Concerns Section Related Observation LastModified by Organization Detai ls LastModified Time None Recorded Concern Status LastModified by Organization Details LastModified Time None Recorded Advance Directives Directive None Recorded Payers Insurance Date Sequence Insurance Name Policy Number Policy Tamayo Covered Member ID Tamayo Member ID Guarantor Name 01/02/2024 1 [facility] [employer] [id number] Opal Contreras [id number] Opal Contreras Notes Date Note Type Note Provider Name and Address Organization Details Recorded Time 12/13/2022 text/html She is here as a new patient for annual exam, works for [employer], , 3 children. She is a former smoker, she gave up alcohol 9 weeks ago : due to liver going up a touch. It was not bad but my PCP said to watch it. Menopause age 42. Never took HRT. Has not had a gypsum calciner exam in more than 10 years, paps always normal. She has ulcerative colitis, and urinary stress incontinence, wears a Depends pad daily. Maribel Wharton MD [address] [place] [address],[address], [place], [address], [place] - [facility], 12/13/2022 10:29:42 12/31/2022 text/html This visit is a phone telehealth visit. The patient consented to the visit by phone. The patient was at home at the time of the call and the provider and patient were the only people on the line. I was at [address] [place] [address], [address], [place], [place], at the time of the call. She has significant urinary stress incontinence. She can go all night, or all day fine, but if I am walking, or sneeze, I leak. She is wearing Depends daily. she also has dyspareunia and vaginal dryness. She had premature ovarian failure at age 42. Note from 12/13/22: She is here as a new patient for annual exam, works for [employer], , 3 children. She is a former smoker, she gave up alcohol 9 weeks ago : due to liver going up a touch. It was not bad but my PCP said to watch it. Menopause age 42. Never took HRT. Has not had a gypsum calciner exam in more than 10 years, paps always normal.She has ulcerative colitis, and urinary stress incontinence, wears a Depends pad daily.She has 3 children and 7 grandchildren, plans to retire at 61.5 !We discussed that her urinary incontinence may improve with estradiol vaginal therapy, and her vaginal dryness, as well. She will set up a telehealth to go over this.Check bone density as had premature ovarian failure at age 42 so at risk of early age onset osteoporosis. Maribel Wharton MD [address] [facility],[address], [place], [address], [facility], 12/31/2022 14:12:45 01/08/2023 text/html This visit is a phone telehealth visit. The patient consented to the visit by phone. The patient was at home at the time of the call and the provider and patient were the only people on the line. I was at [address] [facility], [address], [place], [place], at the time of the call. Her T score of the spine was -3.9, she has never had a bone density before this. 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 She had premature ovarian failure at age 42. Maribel Wharton MD [address] [facility],[address], [place], [address], [facility], 01/08/2023 10:57:10 01/05/2024 text/html She is here for annual. Lat year she was diagnosed with osteoporosis, (had premature ovarian failure), is taking alendronate. Also, she was started on estradiol vaginal therapy with Yuvafem, for her urinary stress incontinence. She had seen a urologist who offered botox injections. She notes the estradiol has improved her symptoms somewhat however there are still days when she leaks heavily, and wonders if there is a different estrogen to try. Her liver tests are normal now she notes. Her ulcerative colitis has been flaring despite her infusions. Note from 2022: She is here as a new patient for annual exam, works for [employer], , 3 children. She is a former smoker, she gave up alcohol 9 weeks ago : due to liver going up a touch. It was not bad but my PCP said to watch it. Menopause age 42. Never took HRT. Has not had a gypsum calciner exam in more than 10 years, paps always normal.She has ulcerative colitis, and urinary stress incontinence, wears a Depends pad daily.She has 3 children and 7 grandchildren, plans to retire at 61.5 !We discussed that her urinary incontinence may improve with estradiol vaginal therapy, and her vaginal dryness, as well. She will set up a telehealth to go over this.Check bone density as had premature ovarian failure at age 42 so at risk of early age onset osteoporosis. Maribel Wharton MD [address] [facility],[address], [place], [address], [place] [facility], 01/05/2024 10:24:06 OBGyn Episode No OBEpisode recorded.
--- OUTSIDE RECORDS SUMMARY | 2025-01-11 09:18 | XMS_ITS | Clinical Summary ---
Author Organization [facility] Address [address] [place] [address] Care Team Providers Care Rn Clinical Documentation Specialist Name Role Phone Vimal Underwood MD Primary Care Provider [phone] Allergies Active Allergy Reactions Criticality Noted Date Comments Penicillins Hives 05/14/2023 Medications Medication Sig Dispensed Refills Start Date End Date Status busPIRone (BUSPAR) 15 MG tablet Take 1 tablet (15 mg total) by mouth daily. 0 04/10/2023 Active FLUoxetine (PROzac) 20 MG capsule Take 1 capsule (20 mg total) by mouth daily. 0 04/18/2023 Active atorvastatin (LIPITOR) tablet 20 mg Take 1 tablet (20 mg total) by mouth daily. 0 02/19/2023 Active alendronate (FOSAMAX) tablet 70 mg TAKE 1 TABLET BY MOUTH EVERY WEEK, X90 DAYS 0 04/21/2023 Active Calcium-Vitamin D-Vitamin K (VIACTIV PO) Take by mouth. 0 Active predniSONE (DELTASONE) tablet 10 mg TAKE 4 TABLETS BY MOUTH ONCE A DAY DIRECTED 0 04/04/2023 Active cetirizine (ZyrTEC) 10 MG tablet Take 1 tablet (10 mg total) by mouth daily. 0 Active Active Problems Problem Noted Date Diagnosed Date Crohn's colitis 05/13/2023 Family History Medical History Relation Name Comments Cancer Father Dementia Father Hiatal hernia Mother Cancer Sister Relation Name Status Comments Father Mother Sister Social History Tobacco Use Types Packs/Day Years Used Date Smoking Tobacco: Former Cigarettes 1.5 35 1 981 - 2016 Tobacco Cessation:Counseling Given: No Alcohol Use Standard Drinks/Week Comments Yes 0 (1 standard drink = 0.6 oz pur e alcohol) RARE SOCIAL USE Sex and Gender Information Value Date Recorded Sex Assigned at Not on file Gender Identity Not on file Sexual Orientation Not on file Job Start Date Occupation Industry Not on file Not on file Not on file Last Filed Vital Signs Vital Sign Reading Time Taken Comments Blood Pressure 133/66 12/17/2023 8:04 AM EDT Pulse 50 12/17/2023 8:04 AM EDT Temperature 35.7 C (96.3 F) 12/17/2023 8:04 AM EDT Respiratory Rate 16 12/17/2023 8:04 AM EDT Oxygen Saturation 100% 12/17/2023 8:0 4 AM EDT Inhaled Oxygen Concentration - - Weight 84.3 kg (185 lb 13.6 oz) 05/14/2023 10:13 AM EST ACTUAL WEIGHT Height - - Body Mass Index - - Plan of Treatment Health Maintenance Due Date Last Done Comments Hepatitis C Screening 1964 Lung Cancer Screening (Low Dose CT) 1964 Depression Screening 1976 Preventative Health Evaluation 1982 DTap / Tdap / Td (1 - Tdap) 07/07/1983 Cervical Cancer Screening (Pap Smear) 1985 Colon Cancer Screening (Colonoscopy) 2009 Breast Cancer Screening (Mammogram) 2014 COVID-19 Vaccine ( season) 2024 01/11/2022, 10/03/2021, 01/11/2021, Additional history exists Influenza Vaccine (#1) 2024 3, 01/11/2022, 01/11/2022, Additional history exists RSV Adult > 60+ Yrs or (1 - 1-dose 75+ series) 07/07/2039 Pneumococcal Vaccine Aged Out 08/31/2019 No long er eligible based on patient's age to complete this topic Shingrix-Zoster Vaccine Completed 01/03/2021, 11/01 Hepatitis B Vaccines Aged Out No long er eligible based on patient's age to complete this topic RSV Ped < 20 months Aged Out No longe r eligible based on patient's age to complete this topic Care Teams Rn Clinical Documentation Specialist Relationship Specialty Start Date End Date Vimal Underwood MD [address] [place] [id number] PCP - General Family Medicine 05/07/23
--- OUTSIDE RECORDS SUMMARY | 2025-01-11 09:18 | XMS_ITS | Clinical Summary ---
Author Organization [facility] Address [address] [place] [address] Phone Care Team Providers Care Chef Instructor Name Role Phone Vimal Underwood DO Primary Care Provider [phone] Allergies Active Allergy Reactions Criticality Noted Date Comments Penicillin Unknown 07/23/2024 Penicillins Hives 05/14/2023 Medications FLUoxetine (PROzac) 20 mg capsule Take 1 capsule (20 mg total) by mouth 1 (one) time each day. 01/20/2023 Active atorvastatin (LIPITOR) 20 mg tablet Take 2 tablets (40 mg total) by mouth 1 (one) time each day. 02/19/2023 Active busPIRone (BUSPAR) 15 mg tablet Take 1 tablet (15 mg total) by mouth 1 (one) time each day. 04/10/2023 Active estradioL (ESTRACE) 0.01 % (0.1 mg/gram) vaginal cream INSERT 0.5 GRAMS EVERY DAY BY VAGINAL ROUTE FOR 85 DAYS. Active alendronate (FOSAMAX) 70 mg tablet TAKE 1 TABLET BY MOUTH EVERY WEEK, X90 DAYS 04/21/2023 Active cetirizine (ZyrTEC) 10 mg tablet Take 1 tablet (10 mg total) by mouth 1 (one) time each day. Active cholecalciferol (VITAMIN D-3) 50 mcg (2,000 unit) tablet Take 1 tablet (2,000 Units total) by mouth 1 (one) time each day. Active cyclobenzaprine (FLEXERIL) 5 mg tablet TAKE 1 TABLET BY MOUTH 3 TIMES A DAY NEEDED FOR SPASMS X7 DAYS 05/21/2023 Active albuterol HFA (PROAIR HFA ; PROVENTIL HFA ; VENTOLIN HFA) 90 mcg/actuation inhaler 05/01/2024 Active Tremfya 100 mg/mL injection 11/08/2024 Act dave calcium carb/vitamin D3/vit K1 (VIACTIV ORAL) Take by mouth. Active Active Problems Problem Noted Date Diagnosed Date Abdominal cramping 12/03/2024 Adrenal adenoma 12/03/2024 Overview (12/03/2024): endo Asthma 12/03/2024 Atherosclerosis of coronary artery of [place] 12/03/2024 Change in bowel habit 12/03/2024 Class 1 obesity 12/03/2024 Diarrhea 12/03/2024 Diarrhea of presumed infectious origin ZACH (generalized anxiety disorder) 12/03/2024 Ganglion cyst of left foot 12/03/2024 Hyperlipidemia 12/03/2024 Irritable bowel syndrome 12/03/2024 Microscopic hematuria 12/03/2024 Overview (12/03/2024): urologist Moderate persistent asthma 12/03/2024 Rectal bleed 12/03/2024 Severe obesity (BMI 35.0-39. 9) with comorbidity (CMS/[facility] V24, [facility] V28) 12/03/2024 Ulcerative pancolitis withou t complication (CMS/HCC V24, CMS/[facility] V28) 02/06/2024 Overview (12/06/2024): [facility] Dx 2018 - [facility] Failed oral mesalamine Entyvio 2023 Changed to Tremfya 2024 due to insurance formulary Assessment & Plan (12/06/2024 8:28 AM EDT): Mild diarrhea last week. She started 1 Imodium a day and this is working well No alarm symptoms She knows to reach out to the office if she needs to escalate the Imodium use or should she develop any abdominal pain or bleeding Overall doing well on Tremfya every 8 weeks patient is up-to-date with her vaccines Next colonoscopy due 12/2026 Orders: CBC and differential; Future Comprehensive metabolic panel; Future C-reactive protein; Future Osteoporosis 01/08/2023 Premature ovarian failure 01/08/2023 Overview (12/03/2024): age 42 Encounters Date Type Department Care Team Description 12/07/2024 Telephone Gastroenterology - [address] [place] [phone] Saige Rowley PA 12/06/2024 8:00 AM EDT Office Visit Gastroenterology - [address] [place] [phone] Saige Rowley PA Ulcerative pancolitis without complication ([facility] V24, [facility] V28) (Primary Dx) from Last 3 Months Immunizations Immunization Administration Dates Next Due Pfizer (ages 12 & older) MILEY S-CoV-2 COVID-19, mRNA, LNP-S, dalila-sucrose, preservative free 10/03/2021 Pfizer SARS-CoV-2 COVID-19, mRNA, LNP-S, preservative free 01/11/2021,07/03/2020,06/11/2020 Surgical History Surgery Date Site/Laterality Comments COLONOSCOPY PROCEDURE:COLONOSCOPY TONSILLECTOMY PROCEDURE:TONSILLECTOMY COLONOSCOPY 03/17/2023 - 04/16/2023 [facility] mod inflammation rectum to sig and ascending to cecum, polyps (fibrinopurulent exudate) [address] Vick COLONOSCOPY 12/16/2023 - 01/15/2024 [facility], mild inflammation rectum to sig, HP polyp (3 yr recall) Dr. Vick Medical History Medical History Date Comments Anemia DX:Anemia COPD (chronic obstructive pu lmonary disease) ([facility] V24, [facility] V28) DX:COPD (chronic o bstructive pulmonary disease) (HCC) Ulcerative colitis ([facility] V24, [facility] V28) DX:Ulcerative colitis (HCC) Osteoporosis DX:Osteoporosis Hyperlipidemia DX:Hyperlipidemi a Depression DX:Depression Family History Medical History Relation Name Comments [...] Orientation Straight 04/07/2024 8: 44 AM EST Obstetrics History Last Filed Vital Signs Vital Sign Reading Time Taken Comments Blood Pressure 116/86 08/04/2024 8:11 AM EDT Pulse 61 08/04/2024 8:11 AM EDT Temperature 36.3 C (97.4 F) 08/04/2024 8:11 AM EDT Respiratory Rate 18 08/04/2024 8:11 AM EDT Oxygen Saturation 98% 08/04/2024 8:11 AM EDT Inhaled Oxygen Concentration - - Weight 91.2 kg (201 lb) 12/06/2024 8:04 AM EDT Height 160 cm (5' 3 ) 12/06/2024 8:04 AM EDT Body Mass Index 35.61 12/06/2024 8:04 AM EDT Plan of Treatment Upcoming Encounters Date Type Department Care Team (Late st Contact Info) Description 06/23/2025 9:10 AM EDT Office Visit Gastroenterology - [address] [place] [phone] Kassandra Munoz PA [address] [place] [phone] Health Maintenance Due Date Last Done Comments Breast Cancer Screening 1964 Cervical Cancer Screening: Pap Smear 1985 RSV Immunization Adult Patients (1 - Risk 50-74 years 1-dose series) 2014 Cholesterol Screening (Lipid Panel) 10/07/2023 HIV Screening 10/07/2023 Hepatitis C Screening 10/07/2023 Lung Cancer Screening (Low Dose CT) 10/07/2023 Osteoporosis Screening (Bone Density Screening) 10/07/2023 Social Influencers of Health Screening 10/07/2023 Depression Screening 03/17/2024 COVID-19 Vaccine ( season) 2024 01/11/2022, 10/03/2021, 01/11/2021, Additional history exists Influenza Vaccine (#1) 2024 , 03/22/2024, 01/28/2023, Additional history exists Hypertension/CHF/CAD Annual BMP Blood Test 12/06/2025 12/06/2024 DTaP,Tdap,and Td Vaccines (2 - Td or Tdap) 08/17/2030 08/17/2020 Colorectal Cancer Screening: Colonoscopy 04/03/2033 04/03/2023 Zoster Vaccines Completed 01/03/2021, 11/01/2020 Pneumococcal Vaccine: 50+ Years Completed 03/22/2024, 03/22/2024, 08/31/2019 HIB Vaccines Aged Out No longer eligi ble based on patient's age to complete this topic HPV Vaccines Aged Out No longer eligi ble based on patient's age to complete this topic Hepatitis A Vaccines Aged Out No long er eligible based on patient's age to complete this topic Hepatitis B Vaccines Aged Out No long er eligible based on patient's age to complete this topic IPV Vaccines Aged Out No longer eligi ble based on patient's age to complete this topic MMR Vaccines Aged Out No longer eligi ble based on patient's age to complete this topic Meningococcal ACWY Vaccine Aged Out N o longer eligible based on patient's age to complete this topic Meningococcal B Vaccine Aged Out No l onger eligible based on patient's age to complete this topic RSV Immunization Patients Under 20 months Aged Out No longer eligible based on patient's age to complete this topic Varicella Vaccines Aged Out No longer eligible based on patient's age to complete this topic Procedures Procedure Name Priority Date/Time Associated Diagnosis Comments CBC WITH AUTO DIFFERENTIAL Routine 12/06/2024 8:27 AM EDT Ulcerative pancolitis without complication ([facility]/HCC V24, [facility] V28) C-REACTIVE PROTEIN Routine 12/06/2024 8: 27 AM EDT Ulcerative pancolitis without complication ([facility] V24, [facility] V28) COMPREHENSIVE METABOLIC PANEL Routine 12/06/2024 8:27 AM EDT Ulcerative pancolitis without complication ([facility] V24, CMS/[facility] V28) CBC AND DIFFERENTIAL Routine 12/06/2024 8:27 AM EDT Ulcerative pancolitis without complication (CMS/HCC V24, CMS/[facility] V28) EXTERNAL COLONOSCOPY REPORT Routine 04/03/2023 7:58 AM EST from Last 3 Months or Most Recently Relevant to Health Maintenance Results * CBC auto differential (12/06/2024 8:27 AM EDT) WBC 6.0 4.8 - 10.8 K/mcL LAB HEMETOLOGY METHOD 12/06/2024 9:51 AM [facility] RBC 4.50 3.80 - 4.80 M/mcL LAB HEMETOLOGY METHOD 12/06/2024 9:51 AM [facility] Hemoglobin 13.9 11.5 - 16.0 g/dL LAB HEMETOLOGY METHOD 12/06/2024 9:51 AM [facility] Hematocrit 42.0 35.0 - 47.0 % LAB HEMETOLOGY METHOD 12/06/2024 9:51 AM [facility] MCV 92.5 79.0 - 98.0 FL LAB HEMETOLOGY METHOD 12/06/2024 9:51 AM [facility] MCH 30.6 27.0 - 32.0 pcg LAB HEMETOLOGY METHOD 12/06/2024 9:51 AM [facility] MCHC 33.1 32.0 - 37.0 g/dL LAB HEMETOLOGY METHOD 12/06/2024 9:51 AM [facility] RDW 11.7 11.0 - 15.0 % LAB HEMETOLOGY METHOD 12/06/2024 9:51 AM [facility] Platelets 231 130 - 400 K/mcL LAB HEMETOLOGY METHOD 12/06/2024 9:51 AM [facility] MPV 9.6 7.0 - 11.0 FL LAB HEMETOLOGY METHOD 12/06/2024 9:51 AM [facility] NRBC 0.0 <1.0 % LAB HEMETOLOGY METHOD 12/06/2024 9:51 AM [facility] NRBC Absolute 0.00 <0.10 K/mcL LAB HEMETOLOGY METHOD 12/06/2024 9:51 AM [facility] Neutrophils Relative 51.2 % LAB HEMETOLOGY METHOD 12/06/2024 9:51 AM [facility] Lymphocytes Relative 33.6 % LAB HEMETOLOGY METHOD 12/06/2024 9:51 AM [facility] Monocytes Relative 9.9 % LAB HEMETOLOGY METHOD 12/06/2024 9:51 AM [facility] Eosinophils Relative 4.0 % LAB HEMETOLOGY METHOD 12/06/2024 9:51 AM [facility] Basophils Relative 1.0 % LAB HEMETOLOGY METHOD 12/06/2024 9:51 AM [facility] Immature Granulocytes Relative 0.3 % LAB HEMETOLOGY METHOD 12/06/2024 9:51 AM [facility] Neutrophils Absolute 3.09 1.50 - 7.00 K/mcL LAB HEMETOLOGY METHOD 12/06/2024 9:51 AM [facility] Lymphocytes Absolute 2.03 1.00 - 5.00 K/mcL LAB HEMETOLOGY METHOD 12/06/2024 9:51 AM [facility] Monocytes Absolute 0.60 0.20 - 1.00 K/mcL LAB HEMETOLOGY METHOD 12/06/2024 9:51 AM [facility] Eosinophils Absolute 0.24 0.00 - 0.50 K/mcL LAB HEMETOLOGY METHOD 12/06/2024 9:51 AM EDT [facility] Basophils Absolute 0.06 0.00 - 0.20 K/[facility] LAB HEMETOLOGY METHOD 12/06/2024 9:51 AM EDT [facility] Immature Granulocytes Absolute 0.02 0.00 - 0.03 K/[facility] LAB HEMETOLOGY METHOD 12/06/2024 9:51 AM EDT [facility] Blood Venous blood specimen / Unknown Venipuncture / Unknown 12/06/2024 8:27 AM EDT 12/06/2024 9:45 AM EDT Saige MCDERMOTT LAB BLOOD ORDERABLES Final R esult Performing Organization Address City/[facility]/ZIP Co de Phone Number [facility] [address] [place] [address], [place] [phone] * C-reactive protein (12/06/2024 8:27 AM EDT) C-Reactive Protein <0.29 <=0.50 mg/dL LAB CHEMISTRY METHOD 12/06/2024 10:27 AM EDT [facility] Blood Venous blood specimen / Unknown Venipuncture / Unknown 12/06/2024 8:27 AM EDT 12/06/2024 9:39 AM EDT Saige MCDERMOTT LAB BLOOD ORDERABLES Final R esult [facility] [address] [place] [address], [place] [phone] * Comprehensive metabolic panel (12/06/2024 8:27 AM EDT) Sodium 139 133 - 145 mmol/L LAB CHEMISTRY METHOD 12/06/2024 10:31 AM EDT [facility] Potassium 4.3 3.5 - 5.5 mmol/L LAB CHEMISTRY METHOD 12/06/2024 10:31 AM [facility] Chloride 108 96 - 110 mmol/L LAB CHEMISTRY METHOD 12/06/2024 10:31 AM [facility] CO2 28 21 - 32 mmol/L LAB CHEMISTRY METHOD 12/06/2024 10:31 AM [facility] Anion Gap 3 3 - 11 LAB CHEMISTRY METHOD 12/06/2024 10:31 AM [facility] Glucose 96 70 - 100 mg/dL LAB CHEMISTRY METHOD 12/06/2024 10:31 AM [facility] BUN 15 5 - 25 mg/dL LAB CHEMISTRY METHOD 12/06/2024 10:31 AM [facility] Creatinine 0.72 0.50 - 1.10 mg/dL LAB CHEMISTRY METHOD 12/06/2024 10:31 AM [facility] eGFR 96 >=60 mL/min/1. 73m2 LAB CHEMISTRY METHOD 12/06/2024 10:31 AM [facility] Comment:Calculation based on the Chronic Kidney Disease Epidemiology Collaboration (CKD-EPI) equation refit without adjustment for race. BUN/Creatinine Ratio 20.8 LAB CHEMISTRY METHOD 12/06/2024 10:31 AM [facility] Calcium 8.9 8.5 - 10.5 mg/dL LAB CHEMISTRY METHOD 12/06/2024 10:31 AM [facility] AST (SGOT) 20 10 - 42 unit/L LAB CHEMISTRY METHOD 12/06/2024 10:31 AM [facility] ALT (SGPT) 26 10 - 60 unit/L LAB CHEMISTRY METHOD 12/06/2024 10:31 AM [facility] Alkaline Phosphatase 80 42 - 121 unit/L LAB CHEMISTRY METHOD 12/06/2024 10:31 AM [facility] Total Protein 6.5 6.0 - 8.0 g/dL LAB CHEMISTRY METHOD 12/06/2024 10:31 AM EDT [facility] Albumin 3.8 3.2 - 5.0 g/dL LAB CHEMISTRY METHOD 12/06/2024 10:31 AM EDT [facility] Total Bilirubin 0.9 0.0 - 1.4 mg/dL LAB CHEMISTRY METHOD 12/06/2024 10:31 AM EDT [facility] Blood Venous blood specimen / Unknown Venipuncture / Unknown 12/06/2024 8:27 AM EDT 12/06/2024 9:39 AM EDT Saige MCDERMOTT LAB BLOOD ORDERABLES Final R esult [facility] [address] [place] [address], * External Colonoscopy Report (04/03/2023 7:58 AM EST) Anatomical Region Laterality Modality Endoscopy Historical Provider GI~PROCEDURE ORDERABLES F inal Result from Last 3 Months or Most Recently Relevant to Health Maintenance Insurance [facility] Care Teams Chef Instructor Relationship Specialty Start Date End Date Vimal Underwood DO [address] [place], [place] PCP - General 05/07/23
== END 2025-01-11 08:32 | disposition home or self-care (01) ==
LOC: HO.MAMMO 08:31
PROVIDERS: PCP Internal Medicine; Visit Provider Internal Medicine
DX: Z12.31 Encounter for screening mammogram for malignant neoplasm of breast (principal)
CPT/HCPCS: 77063; 77067

== ENCOUNTER → 2025-01-11 08:45 | Outpatient (BNV) | payer BC, SELFPAY | PROVIDERS: PCP Internal Medicine; Visit Provider Internal Medicine | DX: Z12.31 Encounter for screening mammogram for malignant neoplasm of breast (principal) | CPT/HCPCS: 77063; 77067 ==